=== PATIENT | male | born 1950 | race Caucasian/White ===

== ENCOUNTER → 2016-12-06 | Day surgery (SDC) | payer BC ==
[2016-11-22 14:39] VITALS: Ht 167.6 cm; Wt 67.3 kg
[~2016-12-06] VITALS: Ht 167.6 cm; Wt 67.3 kg
[~2016-12-06] MED LIST: 500ML BSS 0.3ML EPI 1:1000PF IRRIG ONE; ACETAMINOPHEN 325 MG TAB PO PRN; AMVISC PLUS 0.8ML SYRINGE INT OCU ONE; ATROPINE SULFATE 0.1 MG/ML 5ML SYR IV PRN; AcetaZOLAMIDE 250 MG TAB PO SCH; BETAXOLOL HCL 0.25% OP SUSP PER DROP CHARGE OPR SCH; BRIMONIDINE TART 0.2% OP SOLN PER DROP CHARGE ONE; BSS FLUSH ONE; CHOL1000 PO; ENDOCOAT 0.85ML SYRINGE INT OCU ONE; EpHEDrine SULFATE INJ 50 MG/ML AMP IV PRN; EpINEphrine INJ 1MG/ML AMP 1 MG/ML AMP ONE; LACTATED RINGER'S 1000ML 500 ML IV SCH; LIDOCAINE 4% OP SOLN DROP CHARGE OPR SCH; LIDOCAINE HCL 1% MPF 2 ML VIAL ONE; LPT/20 PO; MIDAZOLAM HCL 1 MG/ML 2ML VIAL ONE; MIX: 4ML BSS 1ML EPI 1:1000 PF INSTIL ONE; MOXIFLOXACIN OPH SOLN PER DROP CHARGE ONE; OCUCOAT 1 ML SOLN IO ONE; POVIDONE-IODINE OP SOLN 30 ML BTL ONE; PROPARACAINE 0.5% OP SOLN PER DROP CHARGE OPR SCH; TOBRAMYCIN/DEXAMETHASONE OPH OINT PER APPLN CHARGE ONE
[2016-12-06] MEDS: PHENYLEPHRINE HCL 2.5% OP SOLN PER DROP CHARGE OPR SCH ×2 (06:41→06:46)
[2016-12-06] MEDS: TROPICAMIDE 1% OP SOLN PER DROP CHARGE OPR SCH ×2 (06:42→06:47)
[2016-12-06] MEDS: CYCLOPENTOLATE HCL 1% OP SOLN PER DROP CHARGE OPR SCH ×2 (06:43→06:48)
[2016-12-06] MEDS: MOXIFLOXACIN OPH SOLN PER DROP CHARGE OPR SCH ×2 (06:44→06:54)
--- NOTE | 2016-12-06 06:52 | History & Physical Bridge - SC ---
H&P Re-Evaluation Bridge Note: I have examined the patient, reviewed the History & Physical and in the interval since the performance of the History & Physical I have noted the following changes of clinical significance: No changes noted
[2016-12-06] MEDS: LIDOCAINE 4% OP SOLN DROP CHARGE ONE ×2 (06:56→07:00)
--- NOTE | 2016-12-06 07:18 | Discharge Instructions-SurgCtr ---
Discharge Instructions Date of Service Dec 06, 2016. Visit Reason for Visit: Cataract Right Eye Discharge Discharge Diagnosis / Problem: lens implant right eye Discharge Goals Goal(s): Improve function Activity Recommendations Activity Limitations: resume your previous activity Lifting Limitations: no more than 10 pounds Exercise/Sports Limitations: gradually increase as tolerated May Resume Sexual Activity: when tolerated Shower/Bathe: tomorrow Driving or Machine Use: resume 1 day after discharge Anesthesia . Post Anesthesia Instructions: If you have had General Anesthesia or IV Sedation: * Do not drive today. * Resume driving when surgeon permits. * Do not make important decisions or sign legal documents today. * Call surgeon for: 1. Temperature elevations greater than 101 degrees F. 2. Uncontrollable pain. 3. Excessive bleeding. 4. Persistent nausea and vomiting. 5. Medication intolerance (nausea, vomiting or rash). * For nausea and vomiting use only clear liquids such as: tea, soda, bouillon until nausea subsides, then gradually increase diet as tolerated. * If you have any concerns or questions, call your surgeon's office. If physician is unavailable and it is an emergency, call 911 or go to the nearest emergency room. . Instructions / Follow-Up Instructions / Follow-Up ACTIVITY RECOMMENDATIONS: * Light activities. * Mild irritation and blurred vision are common for the first few days. * You may walk outside, read, watch television. * Redness around the white part of the eye is common. MEDICATIONS: Resume previous medications unless instructed otherwise by your surgeon. * Take white Diamox (Acetazolamide) tablet at 1 pm today. Start all eye drops at 1 pm today: * Eye drops (today and tomorrow): Prednisone - one drop in operative eye every 3 hours while awake Ofloxacin - one drop in operative eye every 3 hours while awake SPECIAL CARE INSTRUCTIONS: * Tape plastic shield over eye to sleep at night. Call your doctor at with any concerns or problems. FOLLOW UP VISIT: Follow-up with Dr Leroy at [facility] as scheduled. Diet Recommendations Home Diet: no limitations Procedures Procedures Performed: Right Cataract Phacoemulsification With Intraocular Lens Implant Pending Studies Studies pending at discharge: no Medical Emergencies . Who to Call and When: Medical Emergencies: If at any time you feel your situation is an emergency, please call 911 immediately. . Non-Emergent Contact Non-Emergency issues call your: Family Practice Md Call Non-Emergent contact if: your pain is not controlled [phone] . . "Provider Documentation" section prepared by Torrey Leroy. .
[2016-12-06 07:19] VITALS: TEMP 36.3
--- NOTE | 2016-12-06 07:20 | [facility] Operative Report ---
Operative Report Date of Service Dec 06, 2016. Operative Report 1. PREOPERATIVE DIAGNOSIS: Pre Senile nuclear cataract, right eye. 2. POSTOPERATIVE DIAGNOSIS: Pre Senile nuclear cataract, right eye. 3. PROCEDURE: Phacoemulsification of right cataract with posterior chamber lens implant, type Bausch [employer] Lomb, model MI60L, power +9.00 diopters. ANESTHESIA: Local standby. SURGEON: Dr. Leroy. COMPLICATIONS: None. OPERATING TIME: 10 minutes. 4. OPERATION AND FINDINGS: DESCRIPTION OF PROCEDURE: The right pupil was dilated. The anesthetic was administered using a topical technique. The right eye was prepped and draped. A speculum was placed. A clear corneal incision was formed. The chamber was filled with Amvisc Plus and Endocoat. Epinephrine solution was used. A paracentesis was placed. A capsulorrhexis was performed. The nucleus was hydrodissected. The lens was removed with phacoemulsification. Time was 4.51 seconds. The aspiration unit was used to remove the cortex. The capsule was filled with Amvisc Plus. The lens implant was folded and placed into the capsule. The incision was hydrated. The Amvisc was aspirated. The wound was secure. The chamber was deep. The pupil was round. Brimonidine, TobraDex ointment and Vigamox solution were placed. The speculum was removed. The patient was returned to the Recovery Room in stable condition. I attest to the content of the Intraoperative Record and any orders documented therein. Any exceptions are noted below. The scribe's documentation has been prepared in my presence, under my direction and personally reviewed by me in its entirety. I confirm that the note above accurately reflects all work, treatment, procedures, and medical decision making performed by me. I personally scribed for Torrey Leroy M.D. ([email or web address]) on 12/06/16 at 07:20. Electronically submitted by Verena White ([email or web address]).
[2016-12-06 07:36] VITALS: BP 136/76; PULSE 67; O2SAT 97
--- NOTE | 2016-12-06 07:48 | Anesthesia Progress Nt - [facility] ---
Anesthesia Post Op Note Date & Time Dec 06, 2016 at 07:48 Vital Signs Pain Intensity: 0 Vital Signs Past 12 Hours Date Time Temp Pulse Resp B/P (MAP) Pulse Ox O2 Delivery O2 Flow Rate FiO2 12/06/16 07:36 67 16 136/76 (96) 97 Room Air 12/06/16 07:19 36.3 57 16 126/82 (97) 98 Room Air 12/06/16 06:29 36.6 67 16 156/90 (112) 95 Room Air Notes Mental Status: alert / awake / arousable, participated in evaluation Pt Amnestic to Procedure: Yes Nausea / Vomiting: adequately controlled Pain: adequately controlled Airway Patency, RR, SpO2: stable & adequate BP & HR: stable & adequate Hydration State: stable & adequate Anesthetic Complications: no major complications apparent
== END | disposition home or self-care (01) ==
LOC: X.SURG 06:25
PROVIDERS: ATTEND Specialist
DX: H26.8 Other specified cataract (principal)

== ENCOUNTER → 2016-12-13 | Day surgery (SDC) | payer BC ==
[~2016-12-13] VITALS: Ht 167.6 cm; Wt 67.0 kg
[~2016-12-13] MED LIST changes: +AcetaZOLAMIDE 250 MG TAB ONE; +BETAXOLOL HCL 0.25% OP SUSP PER DROP CHARGE OPL SCH; -BETAXOLOL HCL 0.25% OP SUSP PER DROP CHARGE OPR SCH; +FENTANYL CITRATE INJ 50 MCG/1 ML 2 ML VIAL IV PRN; +FLUMAZENIL 0.1 MG/1 ML 10 ML VIAL IV PRN; +HYDROmorphone INJ 2 MG/ML SYR/VIAL IV PRN; +LABETALOL HCL IV 5 MG/ML 20ML IV PRN; +LIDOCAINE 4% OP SOLN DROP CHARGE ONE; +LIDOCAINE 4% OP SOLN DROP CHARGE OPL SCH; -LIDOCAINE 4% OP SOLN DROP CHARGE OPR SCH; +MEPERIDINE HCL 25 MG/ML CARP IV PRN; +NALOXONE HCL 0.4 MG/1 ML VIAL/CARP IV PRN; +ONDANSETRON INJ 2 MG/ML 2 ML VIAL IV PRN; +PHENYLEPHRINE 100MCG/ML 5ML SYR IV PRN; +PROPARACAINE 0.5% OP SOLN PER DROP CHARGE OPL SCH; -PROPARACAINE 0.5% OP SOLN PER DROP CHARGE OPR SCH
[2016-12-13 06:26] VITALS: Ht 167.6 cm; Wt 67.0 kg
[2016-12-13] MEDS: PHENYLEPHRINE HCL 2.5% OP SOLN PER DROP CHARGE OPL SCH ×2 (06:45→06:50)
[2016-12-13] MEDS: TROPICAMIDE 1% OP SOLN PER DROP CHARGE OPL SCH ×2 (06:46→06:51)
[2016-12-13] MEDS: CYCLOPENTOLATE HCL 1% OP SOLN PER DROP CHARGE OPL SCH ×2 (06:47→06:52)
[2016-12-13] MEDS: MOXIFLOXACIN OPH SOLN PER DROP CHARGE OPL SCH ×2 (06:48→06:58)
--- NOTE | 2016-12-13 08:00 | Discharge Instructions-SurgCtr ---
Discharge Instructions Date of Service Dec 13, 2016. Visit Reason for Visit: Cataract Left Eye Discharge Discharge Diagnosis / Problem: lens implant left eye Discharge Goals Goal(s): Improve function Activity Recommendations Activity Limitations: resume your previous activity Lifting Limitations: no more than 10 pounds Exercise/Sports Limitations: gradually increase as tolerated May Resume Sexual Activity: when tolerated Shower/Bathe: tomorrow Driving or Machine Use: resume 1 day after discharge Anesthesia . Post Anesthesia Instructions: If you have had General Anesthesia or IV Sedation: * Do not drive today. * Resume driving when surgeon permits. * Do not make important decisions or sign legal documents today. * Call surgeon for: 1. Temperature elevations greater than 101 degrees F. 2. Uncontrollable pain. 3. Excessive bleeding. 4. Persistent nausea and vomiting. 5. Medication intolerance (nausea, vomiting or rash). * For nausea and vomiting use only clear liquids such as: tea, soda, bouillon until nausea subsides, then gradually increase diet as tolerated. * If you have any concerns or questions, call your surgeon's office. If physician is unavailable and it is an emergency, call 911 or go to the nearest emergency room. . Instructions / Follow-Up Instructions / Follow-Up ACTIVITY RECOMMENDATIONS: * Light activities. * Mild irritation and blurred vision are common for the first few days. * You may walk outside, read, watch television. * Redness around the white part of the eye is common. MEDICATIONS: Resume previous medications unless instructed otherwise by your surgeon. * Take white Diamox (Acetazolamide) tablet at 1 pm today. Start all eye drops at 1 pm today: * Eye drops (today and tomorrow): Prednisone - one drop in operative eye every 3 hours while awake Ofloxacin - one drop in operative eye every 3 hours while awake SPECIAL CARE INSTRUCTIONS: * Tape plastic shield over eye to sleep at night. Call your doctor at with any concerns or problems. FOLLOW UP VISIT: Follow-up with Dr Leroy at [place] office as scheduled. Diet Recommendations Home Diet: no limitations Procedures Procedures Performed: cataract extraction with lens implant Pending Studies Studies pending at discharge: no Medical Emergencies . Who to Call and When: Medical Emergencies: If at any time you feel your situation is an emergency, please call 911 immediately. . Non-Emergent Contact Non-Emergency issues call your: [facility] [employer] Call Non-Emergent contact if: your pain is not controlled [phone] . . "Provider Documentation" section prepared by Torrey Leroy. .
--- NOTE | 2016-12-13 08:02 | [facility] Operative Report ---
Operative Report Date of Service Dec 13, 2016. Operative Report 1. PREOPERATIVE DIAGNOSIS: Pre Senile Posterior Subcapsular Cataract, left eye. 2. POSTOPERATIVE DIAGNOSIS: Pre Senile Posterior Subcapsular Cataract, left eye. 3. PROCEDURE: Phacoemulsification of left cataract with posterior chamber lens implant, type Bausch [employer] Lomb, model MI60L, power +13.0 diopters. ANESTHESIA: Local standby. SURGEON: Dr. Leroy. COMPLICATIONS: None. OPERATING TIME: 10 minutes. 4. OPERATION AND FINDINGS: DESCRIPTION OF PROCEDURE: The left pupil was dilated. The anesthetic was administered using a topical technique. The left eye was prepped and draped. A speculum was placed. A clear corneal incision was formed. The chamber was filled with Amvisc Plus and Endocoat. Epinephrine solution was used. A paracentesis was placed. A capsulorrhexis was performed. The nucleus was hydrodissected. The lens was removed with phacoemulsification. Time was 2.31 seconds. The aspiration unit was used to remove the cortex. The capsule was filled with Amvisc Plus. The lens implant was folded and placed into the capsule. The incision was hydrated. The Amvisc was aspirated. The wound was secure. The chamber was deep. The pupil was round. Brimonidine, TobraDex ointment and Vigamox solution were placed. The speculum was removed. The patient was returned to the Recovery Room in stable condition. I attest to the content of the Intraoperative Record and any orders documented therein. Any exceptions are noted below. The scribe's documentation has been prepared in my presence, under my direction and personally reviewed by me in its entirety. I confirm that the note above accurately reflects all work, treatment, procedures, and medical decision making performed by me. I personally scribed for Torrey Leroy M.D. (ANAY) on 12/13/16 at 08:02. Electronically submitted by Verena TELLEZ).
[2016-12-13 08:21] VITALS: TEMP 36.4
--- NOTE | 2016-12-13 08:21 | Anesthesia Progress Nt - [facility] ---
Anesthesia Post Op Note Date & Time Dec 13, 2016 at 08:21 Vital Signs Pain Intensity: 0 Vital Signs Past 12 Hours Date Time Temp Pulse Resp B/P (MAP) Pulse Ox O2 Delivery O2 Flow Rate FiO2 12/13/16 06:34 36.7 59 16 162/92 (115) 98 Room Air Notes Mental Status: alert / awake / arousable, participated in evaluation Pt Amnestic to Procedure: Yes Nausea / Vomiting: adequately controlled Pain: adequately controlled Airway Patency, RR, SpO2: stable & adequate BP & HR: stable & adequate Hydration State: stable & adequate Anesthetic Complications: no major complications apparent
[2016-12-13 08:33] VITALS: BP 128/79; PULSE 62; O2SAT 97
== END | disposition home or self-care (01) ==
LOC: X.SURG 06:18
PROVIDERS: ATTEND Specialist
DX: H26.8 Other specified cataract (principal)

== ENCOUNTER 2025-01-06 01:33 | Inpatient (IN) ==
--- NOTE | 2025-01-06 01:50 | Emergency Department Note ---
Impression & Plan Acute hypoxemic respiratory failure, Severe sepsis, Multifocal pneumonia, Immunocompromised patient ED Provider Note Name: YOUSUF BRITTON Age: 74 Sex: Male Arrives Via: Walk-In Informant: Patient, ED Provider: Yordy Fagan MD Chief Complaint: Illness Impression: As progression above Medical Decision Makin-year-old gentleman arrives for evaluation of illness. Patient has a history of multiple myeloma for which he received a round of chemotherapy this morning. Patient arrives febrile tachycardic hypotensive and quite ill-appearing diaphoretic. I was immediately called to the patient's room where quested 2 IVs be obtained and immediate fluid resuscitation initiated. Patient's examination highly concerning for severe sepsis secondary to pulmonary cause however tumor lysis syndrome amongst others clearly on differential. Blood cultures and lactic acid sent along with VBG and extensive other laboratory testing. Labs show a normal white blood cell count which is somewhat bumped from just yesterday though with his chemotherapy I would still consider him at risk of being immunosuppressed. He is a bit on the acidotic side with a relatively elevated lactic acid. Lactate dehydrogenase is only mildly elevated. Pro-Dawit is within normal range. At this point though I think proceeding with treating him as severe sepsis/early septic shock is the appropriate approach. Given his improvement in blood pressure and lactate less than 4 we will currently manage him as severe sepsis. He did receive 2 L normal saline for sepsis resuscitation with improvement in blood pressure. Patient furthermore received some IV Zosyn for antibiotic management. A MRSA swab was sent. I discussed the case at length with hospitalist and they feel given the findings on the chest x-ray of the multifocal pneumonia we should keep him in isolation until TB is ruled out. Multiple reevaluations and discussions with patient throughout. Only with his oxygenation requirements continued to increase throughout his stay. Hospitalist monitoring closely. He did not require high flow. Blood pressures remained relatively stable after initial fluid bolus with some mild tachycardia. While chest x-ray findings could be secondary to pulmonary edema, in the setting of hypotension fever amongst other findings, necessitates initial management geared towards infectious etiology and resuscitation, thus the importance of fluid resuscitation and aggressive management. Given worsening respiratory status and need for increasing NC O2, we did opt to obtain a second CXR and got critical care time involved. Sepsis resuscitation: Patient received 2 L normal saline bolus IV as his sepsis resuscitation of 30 mL/kg IV fluids. Sepsis reevaluation: A sepsis reevaluation exam was completed 3:30 AM on 01/06/2025. Patient has received 2 L normal saline bolus at this point. 115/67. Heart rate 96. Nasal cannula 5 L with an oxygen of 91%. Patient is not requiring further fluid bolus at this time. Triage/Nursing Notes reviewed by Me External Chart Review by me: Did review a discharge summary from 10/01/2024 discussing past medical history Differential:Viral syndrome, otitis, pharyngitis, pneumonia, influenza, meningitis, urinary tract infection, sepsis, bacteremia, as well as other pathologies. Vital Signs: reviewed and remarkable for hypoxia, tachycardia, hypotension Interventions: Normal saline bolus 2 L IV, Zosyn IV, Tylenol IV Labs:ED labs Reviewed by me and remarkable for multiple lab abnormalities see chart Imagin view chest x-ray as per my interpretation multifocal pneumonia versus pulmonary edema EKG:As read interpretation. Sepsis. Sinus tachycardia 120 bpm QTc of 483. There is no ectopy nor ischemia. When compared to EKG September 29 2024 heart rate has increased. Cardiac/Tele Monitoring: Cardiac Monitoring: An Order was placed for continuous cardiac monitoring. The monitor shows a rate of 120 with a sinus tach rhythm. Consults:Dr Filiberto RUTLEDGE Hospitalist consulted, evaluated patient and will admit to ICU. As patient has been having worsening respiratory issues now requiring High flow, he noted he will give ICU heads up. Plan: Disposition: Hospitalization Condition: Serious History of Present Illness: 74-year-old gentleman arrives for evaluation illness. Patient with multiple myeloma. He underwent chemotherapy earlier today. Throughout the evening worsening weakness fatigue fatigue and diaphoresis. noted fever of 103. He was becoming worsening ill and thus brought to the ER for further evaluation. Patient had been given Tylenol around midnight tonight. Patient states he feels very fatigued. He feels heart beating in his chest. He denies any specific shortness of breath. Denies any nausea, vomiting, headache, neck pain, chest pain back pain, urinary symptoms, leg swelling, rashes or other concerning signs or symptoms. He has no history of DVT or PE. Denies previous symptoms to this degree. Does note that he got pretty sick after last chemotherapy. Past Medical History: Multiple myeloma, dyslipidemia, hypertension Home Medications:See Below Allergies: No known drug allergy Vitals:Blood Pressure: 96/63, Pulse 120, RR 16, T 37.6C, O2 88% on RA Physical Exam: GENERAL: Patient is ill/diaphoretic appearing and in moderate distress. RESPIRATORY: Tachypnea, dyspnea, clear bilaterally CARDIOVASCULAR: Tachy.No murmur appreciated. GASTROINTESTINAL: Abdomen soft, non-tender, no peritonitis. EXTREMITIES: Normal motion all extremities, no cyanosis, no edema. NEUROLOGIC: Alert and oriented. No focal neurologic deficits appreciated SKIN: No rash, no jaundice, no diaphoresis. PSYCH: Appropriate GCS: 15 ED Course: Times/Reassessments: Improvement in vital signs after initial resuscitation. Hospitalized plan however some worsening respiratory distress and due to need for increasing respiratory support he will be admitted to the ICU Critical Care: I have personally spent 105 minutes of critical care time in the direct management of this patient. Acute hypoxic respiratory failure secondary to multifocal pneumonia vs other requiring resuscitation and intensive management. This was a life/limb threatening event. This 105 minutes is in excess of all separately billable procedures. Yordy Fagan MD Past Med/Surg History Problem List (Updated 01/06/25 @ 08:49 by Mady Pan MD) ARDS (adult respiratory distress syndrome) Immunocompromised patient (Acute) Multifocal pneumonia (Acute) Severe sepsis (Acute) Acute hypoxemic respiratory failure (Acute) Vitamin D deficiency Memory deficits Balance problem Fatigue HLD (hyperlipidemia) HTN (hypertension) Medical History (Updated 01/06/25 @ 08:49 by Mady Pan MD) No pertinent family history Surgical History (Updated 01/05/25 @ 09:22 by Trip Coles MD) H/O cervical spine surgery C5-6 fusion No pertinent past surgical history Family History (Updated 01/05/25 @ 09:23 by Trip Coles MD) Mother , age 90 with dementia Dementia Father , age 101 Heart disease Social History (Updated 01/05/25 @ 09:24 by Trip Coles MD) Smoking Status: Never smoker Do You Dip or Chew Tobacco: No; Hx Alcohol Use: Yes Alcohol type: beer Alcohol Intake Frequency: Monthly or Less Hx Substance Use: No Preferred Language: German 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 Required: No Beliefs That Will Affect Care: None Current Living Situation: Spouse current occupational status: retired 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 Feels Safe at Home: Yes Assistive Devices: BiPap Allergies Allergies Allergy/AdvReac Type Severity Reaction Status Date / Time No Known Allergies Allergy Verified 09/29/24 14:50 Home Meds Home Medications Medication Instructions Recorded Confirmed cholecalciferol (vitamin D3) 25 25 mcg PO QAM ##0 11/22/16 09/29/24 mcg (1,000 unit) tablet (Vitamin D3) acyclovir 200 mg capsule 400 mg PO BID 07/06/24 09/29/24 atorvastatin 10 mg tablet 20 mg PO HS 07/06/24 09/29/24 ferrous sulfate 325 mg (65 mg 325 mg PO QAM 07/06/24 09/29/24 iron) tablet (iron) metoprolol succinate 25 mg 25 mg PO DAILY 07/21/24 09/29/24 tablet,extended release 24 hr amlodipine 2.5 mg tablet 2.5 mg PO DAILY 09/26/24 09/29/24 levetiracetam 500 mg tablet 1,500 mg PO Q12H 09/26/24 09/29/24 tamsulosin 0.4 mg capsule mg PO 01/05/25 01/05/25 Results & Data (ED) Vital Signs Vital Signs - 24 hr 01/06/25 01:36 01/06/25 01:45 01/06/25 01:46 Temperature 37.6 C H Temperature Source Oral Pulse Rate 128 H Pulse Rate [Apical] 120 H Pulse Rhythm Regular Pulse Rhythm [Apical] Pulse Strength Normal Pulse Strength [Apical] Respiratory Rate 18 16 16 Respiratory Effort / Characteristics Non-Labored Spontaneous Non-Labored Spontaneous Respiratory Depth Normal Normal Respiratory Pattern Regular Blood Pressure 73/48 L Blood Pressure [Right Arm] 96/63 L Blood Pressure Mean 56 Blood Pressure Mean [Right Arm] 74 Pulse Oximetry 92 88 L 91 Oxygen Delivery Method Room Air Room Air Nasal Cannula Oxygen Flow Rate 4 Sepsis Recent Fever Within 48 Hours No Sepsis New/Unexplained Change in Mental Status No Sepsis Action Taken by Nursing Physician Notified 01/06/25 01:57 01/06/25 02:00 01/06/25 02:15 Temperature Temperature Source Pulse Rate 109 H 108 H 108 H Pulse Rate [Apical] Pulse Rhythm Pulse Rhythm [Apical] Pulse Strength Pulse Strength [Apical] Respiratory Rate 21 24 24 Respiratory Effort / Characteristics Respiratory Depth Respiratory Pattern Blood Pressure 87/60 L 92/62 L 99/61 L Blood Pressure [Right Arm] Blood Pressure Mean 68 67 72 Blood Pressure Mean [Right Arm] Pulse Oximetry 88 L 90 90 Oxygen Delivery Method Nasal Cannula Nasal Cannula Nasal Cannula Oxygen Flow Rate 4 4 4 Sepsis Recent Fever Within 48 Hours Sepsis New/Unexplained Change in Mental Status Sepsis Action Taken by Nursing 01/06/25 02:30 01/06/25 02:39 01/06/25 02:45 Temperature Temperature Source Pulse Rate 97 H 93 H Pulse Rate [Apical] 99 H Pulse Rhythm Pulse Rhythm [Apical] Regular Pulse Strength Pulse Strength [Apical] Normal Respiratory Rate 27 H 30 H Respiratory Effort / Characteristics Spontaneous Respiratory Depth Normal Respiratory Pattern Regular Blood Pressure 96/61 L Blood Pressure [Right Arm] 99/70 L Blood Pressure Mean 69 Blood Pressure Mean [Right Arm] 79 Pulse Oximetry 93 94 Oxygen Delivery Method Nasal Cannula Nasal Cannula Oxygen Flow Rate 4 4 Sepsis Recent Fever Within 48 Hours Sepsis New/Unexplained Change in Mental Status Sepsis Action Taken by Nursing 01/06/25 02:47 01/06/25 03:12 Temperature Temperature Source Pulse Rate 93 H Pulse Rate [Apical] 88 Pulse Rhythm Regular Pulse Rhythm [Apical] Pulse Strength Pulse Strength [Apical] Respiratory Rate 30 H 20 Respiratory Effort / Characteristics Respiratory Depth Respiratory Pattern Blood Pressure Blood Pressure [Right Arm] Blood Pressure Mean Blood Pressure Mean [Right Arm] Pulse Oximetry 94 91 Oxygen Delivery Method Nasal Cannula Nasal Cannula Oxygen Flow Rate 4 6 Sepsis Recent Fever Within 48 Hours Sepsis New/Unexplained Change in Mental Status Sepsis Action Taken by Nursing Laboratory Data 01/06/25 01:47 01/06/25 01:47 Lab Results 01/06/25 01/06/25 01/06/25 Range/Units 01:47 01:50 01:52 WBC 10.39 (4.8-10.8) K/ul RBC 3.97 L (4.70-6.10) M/uL Hgb 13.5 L (14.0-18.0) g/dl POC Hgb 13.3 L (14.0-18.0) g/dl Hct 39.5 L (42.0-52.0) % POC Hct 39 L (42-52) % MCV 99.5 (80.0-100.0) fL MCH 34.0 (25.0-34.0) pg MCHC 34.2 (32.0-36.0) g/dL RDW Std Deviation 46.1 (36.4-46.3) fL RDW Coeff of Ignacia 12.6 (11.5-14.5) % Plt Count 200 (130-400) K/uL MPV 10.7 (9.4-12.4) fL Immature Gran % (Auto) 4.9 % Neut % (Auto) 88.5 % Lymph % (Auto) 2.3 % Perry % (Auto) 3.8 % Eos % (Auto) 0.1 % Baso % (Auto) 0.4 % Neut # (Auto) 9.19 H (1.40-6.50) K/uL Lymph # (Auto) 0.24 L (1.20-3.40) K/uL Perry # (Auto) 0.40 (0.11-0.59) K/uL Eos # (Auto) 0.01 (0.00-0.50) K/uL Baso # (Auto) 0.04 (0.00-0.20) K/uL Immature Gran # (Auto) 0.51 H (0.01-0.20) K/uL VBG pH 7.41 (7.36-7.41) VBG pCO2 25 L (38-50) mmHg VBG pO2 45 mmHg VBG HCO3 16 mmol/L VBG O2 Saturation 77.4 % VBG Base Excess -7.1 mEq/L POC Sodium 140 (135-144) mmol/L Sodium 137 (136-145) mmol/L POC Potassium 3.6 (3.3-5.0) mmol/L Potassium 3.6 (3.5-5.1) mmol/L POC Chloride 110 (101-112) mmol/L Chloride 111 H (98-107) mmol/L Carbon Dioxide 16 L (21-32) mmol/L POC Total CO2 15 L (24-31) mmol/L Anion Gap 10 (3-11) POC Anion Gap 19.0 (16-25) mmol/L POC BUN 20 H (7-18) mg/dl BUN 23 (6-23) mg/dl Creatinine 1.00 (0.6-1.4) mg/dl POC Creatinine 1.0 (0.6-1.3) mg/dl Est Cr Clr Drug Dosing 60.3 ml/min eGFR 79.97 BUN/Creatinine Ratio 23.0 H (10-20) Glucose 197 H (70-99(Fasting)) mg/dl POC Glucose (other) 192 H (70-99) mg/dl Lactate 3.2 H* (0.4-2.0) mmol/L Uric Acid 4.9 (2.6-7.2) mg/dl Calcium 8.6 (8.6-10.3) mg/dl POC Ioniz Calcium Fozia 1.15 (1.12-1.32) mmol/l Magnesium 1.6 L (1.7-2.4) mg/dl Total Bilirubin 0.7 (0.2-1.0) mg/dl Direct Bilirubin 0.1 (0-0.2) mg/dl AST 17 (13-39) U/L ALT 10 (7-52) U/L Alkaline Phosphatase 43 (34-104) U/L Lactate Dehydrogenase 317 H (86-244) U/L Total Creatine Kinase 32 (30-223) U/L Troponin I High Sens 8.6 (0-20) pg/ml C-Reactive Protein < 0.50 (0-0.5) mg/dl Total Protein 6.0 (6.0-8.3) gm/dl Albumin 3.6 (3.4-5.0) gm/dl Procalcitonin 0.20 (0-0.5) ng/ml Urine Color Urine Appearance (Clear) Urine pH (4.5-7.5) Ur Specific Henderson (1.000-1.030) Urine Protein (Negative) Urine Glucose (UA) (Negative) Urine Ketones (Negative) Urine Blood (Negative) Urine Nitrite (Negative) Urine Bilirubin (Negative) Urine Urobilinogen (Negative) Ur Leukocyte Esterase (Negative) Urine WBC (Auto) (0-5) /hpf Urine RBC (Auto) (0-2) /hpf U Hyaline Cast (Auto) (0-2) /lpf U Epithel Cells (Auto) (0-2) /hpf Urine Bacteria (Auto) (None Seen) Calcium Oxalate Crystal (None Prsent) Urine Comment Nasal Screen MRSA (PCR) (Negative) SARS-CoV-2 (PCR) (Negative) Influenza Type A (PCR) (Neg) Influenza Type B (PCR) (Neg) RSV (RT-PCR) (Neg) 01/06/25 01/06/25 01/06/25 Range/Units 02:12 03:40 03:41 WBC (4.8-10.8) K/ul RBC (4.70-6.10) M/uL Hgb (14.0-18.0) g/dl POC Hgb (14.0-18.0) g/dl Hct (42.0-52.0) % POC Hct (42-52) % MCV (80.0-100.0) fL MCH (25.0-34.0) pg MCHC (32.0-36.0) g/dL RDW Std Deviation (36.4-46.3) fL RDW Coeff of Ignacia (11.5-14.5) % Plt Count (130-400) K/uL MPV (9.4-12.4) fL Immature Gran % (Auto) % Neut % (Auto) % Lymph % (Auto) % Perry % (Auto) % Eos % (Auto) % Baso % (Auto) % Neut # (Auto) (1.40-6.50) K/uL Lymph # (Auto) (1.20-3.40) K/uL Perry # (Auto) (0.11-0.59) K/uL Eos # (Auto) (0.00-0.50) K/uL Baso # (Auto) (0.00-0.20) K/uL Immature Gran # (Auto) (0.01-0.20) K/uL VBG pH (7.36-7.41) VBG pCO2 (38-50) mmHg VBG pO2 mmHg VBG HCO3 mmol/L VBG O2 Saturation % VBG Base Excess mEq/L POC Sodium (135-144) mmol/L Sodium (136-145) mmol/L POC Potassium (3.3-5.0) mmol/L Potassium (3.5-5.1) mmol/L POC Chloride (101-112) mmol/L Chloride (98-107) mmol/L Carbon Dioxide (21-32) mmol/L POC Total CO2 (24-31) mmol/L Anion Gap (3-11) POC Anion Gap (16-25) mmol/L POC BUN (7-18) mg/dl BUN (6-23) mg/dl Creatinine (0.6-1.4) mg/dl POC Creatinine (0.6-1.3) mg/dl Est Cr Clr Drug Dosing ml/min eGFR BUN/Creatinine Ratio (10-20) Glucose (70-99(Fasting)) mg/dl POC Glucose (other) (70-99) mg/dl Lactate 2.2 H* (0.4-2.0) mmol/L Uric Acid (2.6-7.2) mg/dl Calcium (8.6-10.3) mg/dl POC Ioniz Calcium Fozia (1.12-1.32) mmol/l Magnesium (1.7-2.4) mg/dl Total Bilirubin (0.2-1.0) mg/dl Direct Bilirubin (0-0.2) mg/dl AST (13-39) U/L ALT (7-52) U/L Alkaline Phosphatase (34-104) U/L Lactate Dehydrogenase (86-244) U/L Total Creatine Kinase (30-223) U/L Troponin I High Sens (0-20) pg/ml C-Reactive Protein (0-0.5) mg/dl Total Protein (6.0-8.3) gm/dl Albumin (3.4-5.0) gm/dl Procalcitonin (0-0.5) ng/ml Urine Color Yellow Urine Appearance Clear (Clear) Urine pH 5.0 (4.5-7.5) Ur Specific Henderson 1.024 (1.000-1.030) Urine Protein Trace H (Negative) Urine Glucose (UA) Negative (Negative) Urine Ketones Trace H (Negative) Urine Blood Negative (Negative) Urine Nitrite Negative (Negative) Urine Bilirubin Negative (Negative) Urine Urobilinogen Negative (Negative) Ur Leukocyte Esterase Negative (Negative) Urine WBC (Auto) 0-5 (0-5) /hpf Urine RBC (Auto) 3-5 H (0-2) /hpf U Hyaline Cast (Auto) 11-20 H (0-2) /lpf U Epithel Cells (Auto) 0-2 (0-2) /hpf Urine Bacteria (Auto) None Seen (None Seen) Calcium Oxalate Crystal Present A (None Prsent) Urine Comment Nasal Screen MRSA (PCR) Negative (Negative) SARS-CoV-2 (PCR) NEGATIVE (Negative) Influenza Type A (PCR) Negative (Neg) Influenza Type B (PCR) Negative (Neg) RSV (RT-PCR) Negative (Neg) Administered Medications Discontinued Medications Fentanyl Citrate (Fentanyl Citrate 2,500 Mcg/250 Ml Bag) Confirm Administered Dose 2,500 mcg IV .STK-MED ONE Stop: 01/06/25 08:29 Last Admin: 01/06/25 09:03 Dose: Not Given Documented By: GLENN Furosemide (Furosemide 40 Mg/4 Ml Vial) 80 mg IV ONE ONE Stop: 01/06/25 08:42 Last Admin: 01/06/25 09:03 Dose: Not Given Documented By: GLENN Furosemide (Furosemide 40 Mg/4 Ml Vial) Confirm Administered Dose 80 mg IV .STK- MED ONE Stop: 01/06/25 08:43 Last Admin: 01/06/25 08:58 Dose: Not Given Documented By: GLENN Sodium Chloride (Nss) 1,000 mls @ 999 mls/hr IV .Q1H1M JOEL Stop: 01/06/25 03:00 Last Infusion: 01/06/25 02:29 Dose: Infused Documented By: jc Admin: 01/06/25 01:58 Dose: 999 mls/hr Documented By: jc Sodium Chloride (Nss) 1,000 mls @ 999 mls/hr IV .Q1H1M ONE Stop: 01/06/25 03:24 Last Infusion: 01/06/25 03:57 Dose: Infused Documented By: Admin: 01/06/25 02:29 Dose: 999 mls/hr Documented By: jc Piperacillin Sod/Tazobactam Sod (Zosyn) 4.5 gm in 100 mls @ 200 mls/hr IV NOW ONE; Protocol Stop: 01/06/25 03:40 Last Infusion: 01/06/25 04:13 Dose: Infused Documented By: AmolT Admin: 01/06/25 03:43 Dose: 200 mls/hr Documented By: KAREEM Tuberculin PPD 0.1 ml/ Syringe 0.1 mls @ 0.033 mls/min ID ONE ONE Stop: 01/06/25 04:03 Last Admin: 01/06/25 04:29 Dose: 0.033 mls/min Documented By: CORY Magnesium Sulfate/Dextrose (Magnesium Sulfate / D5w) 1 gm in 100 mls @ 50 mls/hr IV Q2H JOEL Stop: 01/06/25 07:44 Last Admin: 01/06/25 06:45 Dose: 50 mls/hr Documented By: Infusion: 01/06/25 06:00 Dose: Infused Documented By: Admin: 01/06/25 04:00 Dose: 50 mls/hr Documented By: KAREEM Potassium Chloride/Sodium Chloride (Normal Saline W/20 Meq Kcl) 20 meq in 1,000 mls @ 80 mls/hr IV .[id number] [facility] Stop: 01/06/25 17:44 Last Admin: 01/06/25 05:36 Dose: 80 mls/hr Documented By: CORY Acyclovir Sodium 650 mg/ (Dextrose) 113 mls @ 100 mls/hr IV Q8H [facility] Stop: 01/08/25 03:59 Last Infusion: 01/06/25 05:37 Dose: Infused Documented By: Admin: 01/06/25 04:29 Dose: 100 mls/hr Documented By: CORY Vancomycin HCl 1,250 mg/ (Sodium Chloride) 525 mls @ 200 mls/hr IV NOW ONE Stop: 01/06/25 09:07 Last Admin: 01/06/25 06:48 Dose: 200 mls/hr Documented By: FAYE Magnesium Sulfate/Dextrose (Magnesium Sulfate / D5w) 1 gm in 100 mls @ 50 mls/hr IV Q2H [facility] Stop: 01/06/25 12:29 Last Admin: 01/06/25 08:35 Dose: 50 mls/hr Documented By: GLENN Doxycycline Hyclate 100 mg/ (Dextrose) 100 mls @ 50 mls/hr IV Q12H [facility] Stop: 01/11/25 07:29 Last Admin: 01/06/25 08:41 Dose: 50 mls/hr Documented By: GLENN Propofol (Diprivan) 1,000 mg in 100 mls @ 7.836 mls/hr IV .[id number] [facility]; Protocol Stop: 01/09/25 08:29 Last Titration: 01/06/25 10:04 Dose: Infused Documented By: Admin: 01/06/25 09:01 Dose: 25 mcg/kg/min, 9.8 mls/hr Documented By: GLENN Co-signed By: BIENVENIDO Fentanyl Citrate (Fentanyl Citrate) 2,500 mcg in 250 mls @ 2.5 mls/hr IV .Q96H [facility]; Protocol Stop: 01/20/25 08:29 Last Titration: 01/06/25 10:05 Dose: Infused Documented By: GLENN Co-signed By: NIK Admin: 01/06/25 09:01 Dose: 100 mcg/hr, 10 mls/hr Documented By: GLENN Co-signed By: BIENVENIDO Midazolam HCl (Versed) 125 mg in 250 mls @ 2 mls/hr IV .Q96H JOEL; Protocol Stop: 02/05/25 08:44 Last Titration: 01/06/25 10:07 Dose: Infused Documented By: GLENN Co-signed By: MARQUITA Admin: 01/06/25 09:02 Dose: 2 mg/hr, 4 mls/hr Documented By: GLENN Co-signed By: BIENVENIDO Dexamethasone 10 mg/ Syringe 2.5 mls @ 1 mls/min IV NOW STA Stop: 01/06/25 08:50 Last Admin: 01/06/25 08:58 Dose: 1 mls/min Documented By: GLENN Levetiracetam (Levetiracetam 500 Mg/5 Ml Vial) 1,500 mg IV Q12H [facility] Stop: 02/05/25 05:59 Last Admin: 01/06/25 06:46 Dose: 1,500 mg Documented By: FAYE Midazolam HCl (Midazolam Hcl 125mg/250ml D5w) Confirm Administered Dose 125 mg IV .STK-MED ONE Stop: 01/06/25 08:44 Last Admin: 01/06/25 09:03 Dose: Not Given Documented By: GLENN Midazolam HCl (Midazolam Hcl 125mg/250ml D5w) Confirm Administered Dose 125 mg IV .STK-MED ONE Stop: 01/06/25 08:46 Last Admin: 01/06/25 09:03 Dose: Not Given Documented By: GLENN Miscellaneous (Rapid Sequence Induction Bag) Confirm Administered Dose 1 each N/A .STK-MED ONE Stop: 01/06/25 08:22 Last Admin: 01/06/25 09:03 Dose: 1 each Documented By: GLENN Propofol (Propofol Iv Emulsion 10 Mg/Ml 100 Ml Vial) Confirm Administered Dose 1,000 mg IV .STK-MED ONE Stop: 01/06/25 08:28 Last Admin: 01/06/25 09:03 Dose: Not Given Documented By: GLENN Rocuronium [place] (Rocuronium [place] 10 Mg/Ml 5 Ml Vial) 40 mg IV ONCE STA Stop: 01/06/25 08:24 Last Admin: 01/06/25 09:04 Dose: Not Given Documented By: GLENN Vecuronium [place] (Vecuronium [place] 10 Mg Vial) Confirm Administered Dose 10 mg IV .K-MED ONE Stop: 01/06/25 08:43 Last Admin: 01/06/25 09:03 Dose: Not Given Documented By: GLENN Imaging Data Radiologist's Impression: Chest X-Ray 01/06/25 01:47 EXAM: XR chest 1V portable CLINICAL HISTORY: Sepsis TECHNIQUE: An X-ray image of the chest was obtained in AP portable projection. COMPARISON: 09/29/2024 FINDINGS: Pulmonary Parenchyma: The bilateral pulmonary parenchyma, predominant at the right middle zone and, to a lesser extent, the upper and lower zones, demonstrates opacifications with a dominant central distribution and decreased peripherally (butterfly pattern), suggesting pulmonary pneumonia or edema. There is no evidence of pleural effusion or pleural thickening. Heart and Mediastinum: The heart size and shape are normal. There is no mediastinal widening or masses. No hilar or mediastinal lymphadenopathy is identified. Bony Thorax: The bony thorax appears intact without fractures or deformities. Soft Tissues: The soft tissues overlying the chest wall are unremarkable. IMPRESSION: Findings suggest pneumonia or pulmonary edema; clinical correlation is advised (new findings). Electronically signed by Jakob Cho 01-06-2025 03:53 AM Discharge Plan Visit Data Chief Complaint: Fever Stated Complaint: INFUSION TODAY NOW COUGH AND FEVER ED Provider: Yordy Fagan Discharge Problem: Acute hypoxemic respiratory failure, Severe sepsis, Multifocal pneumonia, Immunocompromised patient Patient Disposition: Admitted As Inpatient Condition: Serious Discharge Instructions Interventions: ED Discharge Assessment Last Done: 01/06/25 05:10
[2025-01-06] MEDS: SODIUM CHLORIDE 0.9% 1,000 ML IV SCH (01:58)
[2025-01-06 02:10] LABS: Base Excess VBG -7.1 mEq/L; HCO3 VBG 16 mmol/L; Oxygen Saturation VBG 77.4 %; PCO2 VBG 25 mmHg (38-50); PO2 VBG 45 mmHg; pH VBG 7.41 (7.36-7.41)
[2025-01-06 02:14] LABS: Hematocrit (blood only) 39.5 % (42.0-52.0); Hemoglobin 13.5 g/dl (14.0-18.0); Immature Granulocytes # (auto) 0.51 K/uL (0.01-0.20); Immature Granulocytes % (auto) 4.9 %; Mean Corpuscular Hemoglobin 34.0 pg (25.0-34.0); Mean Corpuscular Volume 99.5 fL (80.0-100.0); Platelet Count 200 K/uL (130-400); RDW Standard Deviation 46.1 fL (36.4-46.3); Red Blood Count 3.97 M/uL (4.70-6.10); White Blood Count 10.39 K/ul (4.8-10.8)
[2025-01-06] MEDS: SODIUM CHLORIDE 0.9% 1,000 ML IV ONE (02:29)
[2025-01-06 02:32] LABS: Alanine Aminotransferase 10 U/L (7-52); Albumin Level 3.6 gm/dl (3.4-5.0); Alkaline Phosphatase 43 U/L (34-104); Anion Gap 10 (3-11); Bilirubin,Total 0.7 mg/dl (0.2-1.0); Blood Urea Nitrogen 23 mg/dl (6-23); Calcium 8.6 mg/dl (8.6-10.3); Carbon Dioxide 16 mmol/L (21-32); Chloride 111 mmol/L (98-107); Creatine Kinase 32 U/L (30-223); Creatinine Clr Calc Pharmacy 60.3 ml/min; Glucose 197 mg/dl (70-99(Fasting)); Magnesium 1.6 mg/dl (1.7-2.4); Potassium 3.6 mmol/L (3.5-5.1); Sodium 137 mmol/L (136-145); Total Protein 6.0 gm/dl (6.0-8.3)
[2025-01-06 02:39] LABS: Uric Acid 4.9 mg/dl (2.6-7.2)
[2025-01-06 03:03] LABS: Influenza A virus by PCR Negative (Neg); Influenza B virus by PCR Negative (Neg); SARS CoV2 RNA(COVID-19) Ceph NEGATIVE (Negative)
[2025-01-06] MEDS: PIPERACILLIN/TAZOBACTAM 4.5 GM/100 ML BAG IV ONE (03:43)
--- NOTE | 2025-01-06 03:54 | XRay Report ---
EXAM: XR chest 1V portable CLINICAL HISTORY: Sepsis TECHNIQUE: An X-ray image of the chest was obtained in AP portable projection. COMPARISON: 09/29/2024 FINDINGS: Pulmonary Parenchyma: The bilateral pulmonary parenchyma, predominant at the right middle zone and, to a lesser extent, the upper and lower zones, demonstrates opacifications with a dominant central distribution and decreased peripherally (butterfly pattern), suggesting pulmonary pneumonia or edema. There is no evidence of pleural effusion or pleural thickening. Heart and Mediastinum: The heart size and shape are normal. There is no mediastinal widening or masses. No hilar or mediastinal lymphadenopathy is identified. Bony Thorax: The bony thorax appears intact without fractures or deformities. Soft Tissues: The soft tissues overlying the chest wall are unremarkable. IMPRESSION: Findings suggest pneumonia or pulmonary edema; clinical correlation is advised (new findings). Electronically signed by Jakob Cho 01-06-2025 03:53 AM
--- NOTE | 2025-01-06 03:55 | History & Physical Report ---
Date of Service January 06, 2025 Assessment & Plan (1) Acute hypoxemic respiratory failure: (2) Multifocal pneumonia: (3) Severe sepsis: (4) Immunocompromised patient: Plan The patient is a 74-year-old male with a past medical history including multiple myeloma with most recent chemotherapy department admission, ambulatory dysfunction, memory deficit, vitamin D deficiency, fatigue, hyperlipidemia, hypertension, seizure disorder, and BPH. The patient was brought to the emergency department due to worsening shortness of breath, dyspnea exertion, generalized rapid decline in function throughout the day. The patient reported that he was feeling sick the previous evening, underwent chemotherapy on the morning of 01/05. His reports that he actually been sick for few days prior to that as well. Upon arrival to the emergency department, he was found to be hypotensive, with blood pressure 73/48. He was attended to by the ED physician, and received aggressive fluid rehydration, with improvement in blood pressure to the 99/70, and continued improvement from there with continued rehydration. Chest x-ray showed a very significant right upper and right middle lobe infection, and left upper and part of left lower lobe infection. He was initially on nasal cannula, and then changed to oxy mask, redness oxygen saturation in the ED low 90s. He was empirically placed on Zosyn 4.5 g IV by ED. he was then referred for evaluation for admission to the [facility] service. Acute respiratory failure with hypoxia/sepsis due to pneumonia/immunocompromised patient- Hold all oral medications for now Respiratory isolation TB protocol PPD placement and QuantiFERON testing Zosyn 4.5 g IV every 8 hours Acyclovir 600 mg IV every 8 hours Fluconazole 400 mg IV every 24 hours Duonebs every 2 hours as needed Acetaminophen 1 g IV every 8 hours as needed for mild pain or fever Zofran 4 mg IV every 6 hours as needed Pantoprazole 40 mg IV daily COVID, flu, RSV testing negative MRSA swab ordered and pending Chest x-ray with severe bilateral lobe and right middle lobe infections, with follow-up x-rays extending up the lower lobes bilaterally Cannot tolerate laying backwards to do CT chest at this time May be an element of fluid overload after requiring aggressive fluid rehydration due to hypotension. May require stoppage of IV fluids and IV diuresis Patient initially was on nasal cannula oxygen, was then changed to oxy mask, and when he required changing to nasal cannula high flow, while in the ED his admission orders were changed from PCU to ICU. 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 He has received IV and intrathecal chemotherapy. MRIs done December 30 showed no evidence of cancer or leptomeningeal enhancement at that time. Most recent chemotherapy and on the morning of 01/05 Symptoms has begun increased 2 days, however, he is not really this to oncology Immunoglobulin testing has been ordered by outpatient physician earlier today, which are showing a low normal IgG, and a abnormally low IgA and IgM Consulting Dr. Lora's office Dr. Rowe Seizure disorder- Changing Keppra 5 mg p.o. every 12 hours to IV every 12 hours Hypomagnesemia- Magnesium 1.6 on admission, give mag sulfate 2 g IV, recheck laboratories every morning History of Present Illness Chief Complaint: The patient was brought to the emergency department due to worsening shortness of breath, dyspnea exertion, generalized rapid decline in function throughout the day. The patient reported that he was feeling sick the previous evening, underwent chemotherapy on the morning of 01/05. His reports that he actually been sick for few days prior to that as well. Upon arrival to the emergency department, he was found to be hypotensive, with blood pressure 73/48. He was attended to by the ED physician, and received aggressive fluid rehydration, with improvement in blood pressure to the 99/70, and continued improvement from there with continued rehydration. Chest x-ray showed a very significant right upper and right middle lobe infection, and left upper and part of left lower lobe infection. He was initially on nasal cannula, and then changed to oxy mask, redness oxygen saturation in the ED low 90s. He was empirically placed on Zosyn 4.5 g IV by ED. Primary Care Provider: Eyal Baron MD The patient is a 74-year-old male with a past medical history including multiple myeloma with most recent chemotherapy department admission, ambulatory dysfunction, memory deficit, vitamin D deficiency, fatigue, hyperlipidemia, hypertension, seizure disorder, and BPH. The patient was brought to the emergency department due to worsening shortness of breath, dyspnea exertion, generalized rapid decline in function throughout the day. The patient reported that he was feeling sick the previous evening, underwent chemotherapy on the morning of 01/05. His reports that he actually been sick for few days prior to that as well. Upon arrival to the emergency department, he was found to be hypotensive, with blood pressure 73/48. He was attended to by the ED physician, and received aggressive fluid rehydration, with improvement in blood pressure to the 99/70, and continued improvement from there with continued rehydration. Chest x-ray showed a very significant right upper and right middle lobe infection, and left upper and part of left lower lobe infection. He was initially on nasal cannula, and then changed to oxy mask, redness oxygen saturation in the ED low 90s. He was empirically placed on Zosyn 4.5 g IV by ED. [facility] was [facility] Allergies Allergy/AdvReac Type Severity Reaction Status Date / Time No Known Allergies Allergy Verified 09/29/24 14:50 Home Medications Medication Instructions Recorded Confirmed Type cholecalciferol (vitamin D3) 25 25 mcg PO QAM ##0 11/22/16 09/29/24 History mcg (1,000 unit) tablet (Vitamin D3) acyclovir 200 mg capsule 400 mg PO BID 07/06/24 09/29/24 History atorvastatin 10 mg tablet 20 mg PO HS 07/06/24 09/29/24 History ferrous sulfate 325 mg (65 mg 325 mg PO QAM 07/06/24 09/29/24 History iron) tablet (iron) metoprolol succinate 25 mg 25 mg PO DAILY 07/21/24 09/29/24 History tablet,extended release 24 hr amlodipine 2.5 mg tablet 2.5 mg PO DAILY 09/26/24 09/29/24 History levetiracetam 500 mg tablet 1,500 mg PO Q12H 09/26/24 09/29/24 History tamsulosin 0.4 mg capsule mg PO 01/05/25 01/05/25 History Past Med/Surg History Problem List (Updated 01/06/25 @ 05:08 by Yordy Fagan MD) Immunocompromised patient (Acute) Multifocal pneumonia (Acute) Severe sepsis (Acute) Acute hypoxemic respiratory failure (Acute) Vitamin D deficiency Memory deficits Balance problem Fatigue HLD (hyperlipidemia) HTN (hypertension) Medical History (Updated 01/06/25 @ 05:08 by Yordy Fagan MD) No pertinent family history Surgical History (Updated 01/05/25 @ 09:22 by Trip Coles MD) H/O cervical spine surgery C5-6 fusion No pertinent past surgical history Family History (Updated 01/05/25 @ 09:23 by Trip Coles MD) Mother , age 90 with dementia Dementia Father , age 101 Heart disease Social History (Updated 01/05/25 @ 09:24 by Trip Coles MD) Smoking Status: Never smoker Hx Alcohol Use: Yes Alcohol Intake Frequency: Monthly or Less Preferred Language: Vietnamese Current Living Situation: Spouse current occupational status: retired 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 The review of systems is otherwise negative other than for that already noted above, and at least 10 systems have been reviewed. Physical Exam Physical Exam: The patient is awake, alert and oriented 3, normocephalic and atraumatic, lying in bed and in no acute distress. HEENT--PERRL, EOMI, mucous membranes and oropharynx dry. Neck--supple. No JVD. No bruits. Thyroid normal, trachea midline, no adenopathy. Heart--normal S1 and S2. No murmurs, rubs or gallops. Lungs--very coarse breath sounds bilaterally. No respiratory distress, no accessory muscle use. Abdomen--normal bowel sounds and soft. Nontender. Nondistended Extremities-- No edema. Dermatologic--normal skin turgor, normal color, no abnormal lymph nodes, no rash. Neurologic--cranial nerves II through XII grossly intact. Rheumatologic--normal range of motion. Psychiatric--normal affect. Results & Data Results & Data Vital Signs (Past 12 Hours) Vital Signs Temp Pulse Pulse Resp BP BP Pulse Ox 01/06/25 03:12 88 20 91 01/06/25 02:47 93 H 30 H 94 01/06/25 02:45 99 H 30 H 99/70 L 94 01/06/25 02:39 93 H 01/06/25 02:30 97 H 27 H 96/61 L 93 01/06/25 02:15 108 H 24 99/61 L 90 01/06/25 02:00 108 H 24 92/62 L 90 01/06/25 01:57 109 H 21 87/60 L 88 L 01/06/25 01:46 16 91 01/06/25 01:45 120 H 16 96/63 L 88 L 01/06/25 01:36 37.6 C H 128 H 18 73/48 L 92 O2 Del Method O2 Flow Rate 01/06/25 03:12 Nasal Cannula 6 01/06/25 02:47 Nasal Cannula 4 01/06/25 02:45 Nasal Cannula 4 01/06/25 02:39 01/06/25 02:30 Nasal Cannula 4 01/06/25 02:15 Nasal Cannula 4 01/06/25 02:00 Nasal Cannula 4 01/06/25 01:57 Nasal Cannula 4 01/06/25 01:46 Nasal Cannula 4 01/06/25 01:45 Room Air 01/06/25 01:36 Room Air Laboratory Results Laboratory Results WBC 10.39 K/ul (4.8-10.8) 01/06/25 01:47 RBC 3.97 M/uL (4.70-6.10) L 01/06/25 01:47 Hgb 13.5 g/dl (14.0-18.0) L 01/06/25 01:47 POC Hgb 13.3 g/dl (14.0-18.0) L 01/06/25 01:52 Hct 39.5 % (42.0-52.0) L 01/06/25 01:47 POC Hct 39 % (42-52) L 01/06/25 01:52 MCV 99.5 fL (80.0-100.0) 01/06/25 01:47 MCH 34.0 pg (25.0-34.0) 01/06/25 01:47 MCHC 34.2 g/dL (32.0-36.0) 01/06/25 01:47 RDW Std Deviation 46.1 fL (36.4-46.3) 01/06/25 01:47 RDW Coeff of Ignacia 12.6 % (11.5-14.5) 01/06/25 01:47 Plt Count 200 K/uL (130-400) 01/06/25 01:47 MPV 10.7 fL (9.4-12.4) 01/06/25 01:47 Immature Gran % (Auto) 4.9 % 01/06/25 01:47 Neut % (Auto) 88.5 % 01/06/25 01:47 Lymph % (Auto) 2.3 % 01/06/25 01:47 Logan % (Auto) 3.8 % 01/06/25 01:47 Eos % (Auto) 0.1 % 01/06/25 01:47 Baso % (Auto) 0.4 % 01/06/25 01:47 Neut # (Auto) 9.19 K/uL (1.40-6.50) H 01/06/25 01:47 Lymph # (Auto) 0.24 K/uL (1.20-3.40) L 01/06/25 01:47 Logan # (Auto) 0.40 K/uL (0.11-0.59) 01/06/25 01:47 Eos # (Auto) 0.01 K/uL (0.00-0.50) 01/06/25 01:47 Baso # (Auto) 0.04 K/uL (0.00-0.20) 01/06/25 01:47 Immature Gran # (Auto) 0.51 K/uL (0.01-0.20) H 01/06/25 01:47 VBG pH 7.41 (7.36-7.41) 01/06/25 01:50 VBG pCO2 25 mmHg (38-50) L 01/06/25 01:50 VBG pO2 45 mmHg 01/06/25 01:50 VBG HCO3 16 mmol/L 01/06/25 01:50 VBG O2 Saturation 77.4 % 01/06/25 01:50 VBG Base Excess -7.1 mEq/L 01/06/25 01:50 POC Sodium 140 mmol/L (135-144) 01/06/25 01:52 Sodium 137 mmol/L (136-145) 01/06/25 01:47 POC Potassium 3.6 mmol/L (3.3-5.0) 01/06/25 01:52 Potassium 3.6 mmol/L (3.5-5.1) 01/06/25 01:47 POC Chloride 110 mmol/L (101-112) 01/06/25 01:52 Chloride 111 mmol/L (98-107) H 01/06/25 01:47 Carbon Dioxide 16 mmol/L (21-32) L 01/06/25 01:47 POC Total CO2 15 mmol/L (24-31) L 01/06/25 01:52 Anion Gap 10 (3-11) 01/06/25 01:47 POC Anion Gap 19.0 mmol/L (16-25) 01/06/25 01:52 POC BUN 20 mg/dl (7-18) H 01/06/25 01:52 BUN 23 mg/dl (6-23) 01/06/25 01:47 Creatinine 1.00 mg/dl (0.6-1.4) 01/06/25 01:47 POC Creatinine 1.0 mg/dl (0.6-1.3) 01/06/25 01:52 Est Cr Clr Drug Dosing 60.3 ml/min 01/06/25 01:47 eGFR 79.97 01/06/25 01:47 BUN/Creatinine Ratio 23.0 (10-20) H 01/06/25 01:47 Glucose 197 mg/dl (70-99(Fasting)) H 01/06/25 01:47 POC Glucose (other) 192 mg/dl (70-99) H 01/06/25 01:52 Lactate 2.2 mmol/L (0.4-2.0) H* 01/06/25 03:41 Uric Acid 4.9 mg/dl (2.6-7.2) 01/06/25 01:47 Calcium 8.6 mg/dl (8.6-10.3) 01/06/25 01:47 POC Ioniz Calcium Fozia 1.15 mmol/l (1.12-1.32) 01/06/25 01:52 Magnesium 1.6 mg/dl (1.7-2.4) L 01/06/25 01:47 Total Bilirubin 0.7 mg/dl (0.2-1.0) 01/06/25 01:47 Direct Bilirubin 0.1 mg/dl (0-0.2) 01/06/25 01:47 AST 17 U/L (13-39) 01/06/25 01:47 ALT 10 U/L (7-52) 01/06/25 01:47 Alkaline Phosphatase 43 U/L (34-104) 01/06/25 01:47 Lactate Dehydrogenase 317 U/L (86-244) H 01/06/25 01:47 Total Creatine Kinase 32 U/L (30-223) 01/06/25 01:47 Troponin I High Sens 8.6 pg/ml (0-20) 01/06/25 01:47 Total Protein 6.0 gm/dl (6.0-8.3) 01/06/25 01:47 Albumin 3.6 gm/dl (3.4-5.0) 01/06/25 01:47 Procalcitonin 0.20 ng/ml (0-0.5) 01/06/25 01:47 Urine Color Yellow 01/06/25 03:40 Urine Appearance Clear (Clear) 01/06/25 03:40 Urine pH 5.0 (4.5-7.5) 01/06/25 03:40 Ur Specific Lindsey 1.024 (1.000-1.030) 01/06/25 03:40 Urine Protein Trace (Negative) H 01/06/25 03:40 Urine Glucose (UA) Negative (Negative) 01/06/25 03:40 Urine Ketones Trace (Negative) H 01/06/25 03:40 Urine Blood Negative (Negative) 01/06/25 03:40 Urine Nitrite Negative (Negative) 01/06/25 03:40 Urine Bilirubin Negative (Negative) 01/06/25 03:40 Urine Urobilinogen Negative (Negative) 01/06/25 03:40 Ur Leukocyte Esterase Negative (Negative) 01/06/25 03:40 Urine WBC (Auto) 0-5 /hpf (0-5) 01/06/25 03:40 Urine RBC (Auto) 3-5 /hpf (0-2) H 01/06/25 03:40 U Hyaline Cast (Auto) 11-20 /lpf (0-2) H 01/06/25 03:40 U Epithel Cells (Auto) 0-2 /hpf (0-2) 01/06/25 03:40 Urine Bacteria (Auto) None Seen (None Seen) 01/06/25 03:40 Calcium Oxalate Crystal Present (None Prsent) A 01/06/25 03:40 Urine Comment 01/06/25 03:40 Nasal Screen MRSA (PCR) Negative (Negative) 01/06/25 03:40 SARS-CoV-2 (PCR) NEGATIVE (Negative) 01/06/25 02:12 Influenza Type A (PCR) Negative (Neg) 01/06/25 02:12 Influenza Type B (PCR) Negative (Neg) 01/06/25 02:12 RSV (RT-PCR) Negative (Neg) 01/06/25 02:12 Impressions Chest X-Ray 01/06/25 05:13 EXAM: XR chest 1V portable CLINICAL HISTORY: Worsening respiratory status TECHNIQUE: An X-ray image of the chest was obtained in AP portable projection. COMPARISON: 01/06/2025 01:27:02 FABRIC AND ACCESSORIES ESTIMATOR FINDINGS: Pulmonary Parenchyma: There are bilateral pulmonary parenchymal opacities, predominant in the right middle zone, with consolidative opacities and bilateral central hilar opacities. There is slight progression. There are increased bronchovascular markings with reticular shadows. There is no evidence of pleural effusion or pleural thickening. Heart and Mediastinum: The size and shape of the heart are normal. There is no mediastinal widening or mass. Prominent hilar shadows. Bony Thorax: The bony thorax appears intact, without fractures or deformities. Cervical fixation. Soft Tissues: The soft tissues overlying the chest wall are unremarkable. ECG wires are present. IMPRESSION: 1. Overall imaging appearances are likely due to pulmonary edema; however, clinical and laboratory correlation is advised to rule out superimposed infection. 2. Slight interval worsening. Electronically signed by Jakob Cho 01-06-2025 06:33 AM Code Status & VTE Plan Code Status Full code VTE Prophylaxis Plan VTE Prophylaxis will be ordered: Yes PG Care Time/CCT Total # of Minutes Spent Total Time Spent with Patient: Total time spent is greater than 50% in coordination of care (as documented) at patient's floor/unit and/or counseling patient: 65 minutes Coding Level of Care Code 82532 INT INP/OBS CARE 3/75MIN Diagnoses Acute hypoxemic respiratory failure J96.01 Multifocal pneumonia J18.8 Severe sepsis A41.9; R65.20 Immunocompromised patient D84.9
[2025-01-06] MEDS: MAGNESIUM SULFATE / D5W 1 GM/100 ML BAG IV SCH ×2 (04:00→08:35)
[2025-01-06] MEDS: [UNRECOGNIZED DRUG - MIXTURE] ID ONE (04:29)
[2025-01-06] MEDS: ACYCLOVIR SOD 650 MG in DEXTROSE 5% 100 ML IV SCH (04:29)
[2025-01-06 04:43] LABS: Appearance Urine Clear (Clear); Bacteria Urine Automated None Seen (None Seen); Epithelial Cell Urine Auto 0-2 /hpf (0-2); Glucose Urine UA Negative (Negative); WBC Urine Automated 0-5 /hpf (0-5)
[2025-01-06] MEDS ORDERED: FLUCONAZOLE 200 MG/100 ML BAG IV SCH (05:00)
[2025-01-06] MEDS ORDERED: ONDANSETRON INJ 2 MG/ML 2 ML VIAL IV PRN (05:10)
[2025-01-06] MEDS ORDERED: ACETAMINOPHEN 325 MG TAB PO PRN (05:10)
[2025-01-06] MEDS ORDERED: ACETAMINOPHEN 1,000 MG/100 ML VIAL IV PRN (05:33)
[2025-01-06] MEDS: NSS + 20MEQ KCL 20 MEQ/1,000 ML BAG IV SCH (05:36)
[2025-01-06] MEDS ORDERED: VANCOMYCIN CONSULT ACTIVE PRN (06:08)
[2025-01-06] MEDS ORDERED: PIPERACILLIN/TAZOBACTAM 4.5 GM/100 ML BAG IV SCH ×3 (06:15→10:00)
--- NOTE | 2025-01-06 06:24 | Critical Care Consultation ---
Date of Consultation January 06, 2025 Assessment & Plan (1) ARDS (adult respiratory distress syndrome): (2) Multifocal pneumonia: (3) Acute hypoxemic respiratory failure: Plan Mr. Rubens Garibay is a pleasant 74YOM with an extensive past medical history as listed below who presented to [facility] ED in the early hours of 01/06/2025 due to sudden onset fever/chills and shortness of breath after a round of KCd on 01/05/2025. 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 pneumonitis v. other -Intubated on VC-AC 100% PEEP 15 TV 450 RR 12 -Patient noted to have extensive pulm edema in ETT post intubation -POCUS does not appear to have cardiomyopathy or regional wall motion abnormality. Pursue formal TTE. One time Lasix held as edema appears noncardiogenic. -ABX as noted in ID -10mg dex given. Heme/onc rec. -Maintian SpO2 > 92% GI: Dysphagia -NPO -OG tube to be placed -Hold TF at this time : Creat- 1.00 BUN 23 Ceballos for I/O Endo: Stress hyperglycemia -ICU hyperglycemia protocol -Maintain BG 140-180 -BG 190's Heme/Onc Multiple myeloma -Follows with Oncology at [facility] -Last chemo 01/05/2025 -Most recent MRI brain 12/30 shows resolution and good treatment response. ID: Possible pneumonia CAP v. opportunistic infection in setting of immunocompromised state -WBC 3.55->10.39 this am -Febrile on arrival to ED -Chest x-ray shows worsening bilateral pulmonary infiltrates. -Broaden ABX to Zosyn, Vanc, and doxy -Fungitell pending -Obtain bal once intubated -Procal 0.20 -Flu, RSV, COVID negative - Prophylaxis -Start GI prophylaxis with pepcid -SCD for mechanical DVT prophylaxis -Lovenix for chemical DVT prophylaxis Disposition: ICU for acute hypoxic respiratory failure with need for mechanical ventilation. Plan to transfer to [facility] MICU for cont eval and management. Family updated to POC by ICU team on 01/06/25. I have personally spent 45 minutes of critical care time in the direct ma nagement of this patient. This is a life/limb threatening event. This includes time spent evaluating patient, direct bedside care, chart review, placing orders, interpretation of diagnostic studies, discussion with consultants, patient, and family members, as well as other required patient management activities. This time is exclusive of all separately billable procedures, and teaching time and separate from and in addition to any other critical care service time. Thank you for allowing us to participate in the care of this patient. Supervising Physician Co-Signing Physician Notes I have personally evaluated and examined this patient. I agree with plan of Flakito FINNEY in the subsequent treatment of the patient Initially saw the patient prior to Flakito FINNEY, patient in acute hypoxic respiratory failure requiring immediate intervention. Please see procedure note. I discussed with the patient's prognosis, patient's son were also able to see the patient prior to intubation. Patient had significant flash pulmonary edema. He was significantly hypoxic requiring a recruitment maneuver which significantly improved his oxygen saturation. Patient entered acute respiratory distress syndrome likely secondary to recent chemotherapy infusion. Bedside ultrasound was completed by me demonstrated diffuse B-lines through all lung garrido, cardiac function appears to be preserved, no evidence of pleural effusion at this time nor atelectatic changes. Instituted neuromuscular blockade for transport and hypoxia. My critical care time is prior to and Flakito FINNEY critical care time is subsequent to my management. I have personally spent 40 minutes of critical care time in the direct management of this patient. This is a life/limb threatening event. This includes time spent evaluating patient, direct bedside care, chart review, placing orders, interpretation of diagnostic studies, discussion with consultants, patient, and/or family members regarding treatment decisions, as well as other required patient management activities. This time is exclusive of all separately billable procedures, and teaching time and separate from and in addition to any other critical care service time. History of Present Illness Reason for Consultation: Respiratory failure Requesting Physician: Filiberto Attending Physician: Mario De Los Santos MD History of Present Illness Mr. Rubens Garibay is a pleasant 74YOM with an extensive past medical history as listed below who presented to [facility] ED in the early hours of 01/06/2025 due to sudden onset fever/chills and shortness of breath after a round of KCd on 01/05/2025. Afebrile on arrival to ED. Received 2L IVF bolus per sepsis protocol as well as Zosyn for empiric coverage. His respiratory status did worsen throughout ED course, eventually requiring HFNC 60/1.0. Remainder of work-up reveals lactic acidosis, WBC 10.4 from 3.6 just 12 hours prior with neutrophil predominance and lymphopenia. Compensated metabolic acidosis with respiratory alkalosis. Cr bump from 0.87 to 1.0. Imaging revealed dense multifocal opacities with dominant central distribution. Patient was upgraded to ICU admission. Patient seen in ED C10. He is AAOx4. Mild respiratory distress. He is able to converse in short sentences. SpO2 92% on 60/1.0. RR 30s. Afebrile, tachycardic, normotensive. Patient provides additional history. Sudden onset fever/chills and fatigue late last evening. awoke around 2300 to patient restless and febrile to 103F. She brought him to the hospital herself. On chart review: PMH: AF on Eliquis Multiple myeloma, advanced, with leptomeningeal disease Status epilepticus 2/2 LMD on Keppra HTN/HLD GERD MDRO Pulmonary hypertension, mild Receives KCd via Ommaya port as well as Velcade and Revlimid. MRI from 12/30 shows resolution of leptomeningeal disease. Allergies Allergy/AdvReac Type Severity Reaction Status Date / Time No Known Allergies Allergy Verified 09/29/24 14:50 Home Medications Medication Instructions Recorded Confirmed Type cholecalciferol (vitamin D3) 25 25 mcg PO QAM ##0 11/22/16 09/29/24 History mcg (1,000 unit) tablet (Vitamin D3) acyclovir 200 mg capsule 400 mg PO BID 07/06/24 09/29/24 History atorvastatin 10 mg tablet 20 mg PO HS 07/06/24 09/29/24 History ferrous sulfate 325 mg (65 mg 325 mg PO QAM 07/06/24 09/29/24 History iron) tablet (iron) metoprolol succinate 25 mg 25 mg PO DAILY 07/21/24 09/29/24 History tablet,extended release 24 hr amlodipine 2.5 mg tablet 2.5 mg PO DAILY 09/26/24 09/29/24 History levetiracetam 500 mg tablet 1,500 mg PO Q12H 09/26/24 09/29/24 History tamsulosin 0.4 mg capsule mg PO 01/05/25 01/05/25 History Patient History Medical History (Updated 01/06/25 @ 08:49 by Mady Pan MD) No pertinent family history Surgical History (Updated 01/05/25 @ 09:22 by Trip Coles MD) H/O cervical spine surgery C5-6 fusion No pertinent past surgical history Family History (Updated 01/05/25 @ 09:23 by Trip Coles MD) Mother , age 90 with dementia Dementia Father , age 101 Heart disease Social History (Updated 01/05/25 @ 09:24 by Trip Coles MD) Smoking Status: Never smoker Do You Dip or Chew Tobacco: No; Hx Alcohol Use: Yes Alcohol type: beer Alcohol Intake Frequency: Monthly or Less Hx Substance Use: No Preferred Language: Macedonian Heel Burnisher Required: No Beliefs That Will Affect Care: None Current Living Situation: Spouse current occupational status: retired 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 WEIGHT/BMI reviewed. GEN: Critically ill appearing, well-developed, NAD. PSYCH: Good Judgment. AOx3. Normal memory, mood, and affect. HEENT -Head: NC/AT; -Eyes: PERRL, EOMI. No discharge or redn ess; -Ears: External ears are normal. -Nose: Normal nares. -Mouth and throat: MMM. Normal gums, muc liz, palate,. Good dentition. NECK: Supple, with no masses. CV: RRR, no m/r/g. LUNGS: Crackles in bilateral upper and lower lobes. Chest rise symmetrical. Breathing labored on Bipap. ABD: Soft, NT/ND, NBS, no masses or organomegaly. : N/A SKIN: Warm, well perfused. No skin rashes or abnormal lesions. MSK: No deformities, Normal gait. EXT: No clubbing, cyanosis, or edema. NEURO: Normal muscle strength and tone. No focal deficits. Results & Data Results & Data Vital Signs (Past 12 Hours) Vital Signs Temp Pulse Pulse Resp BP BP Pulse Ox 01/06/25 05:30 109 H 38 H 112/81 95 10/07/25 05:17 105 H 32 H 110/67 95 01/06/25 05:17 01/06/25 04:51 104 H 30 H 125/72 86 L 01/06/25 04:07 90 01/06/25 03:55 37.0 C 102 H 23 149/66 H 86 L 01/06/25 03:12 88 20 91 01/06/25 02:47 93 H 30 H 94 01/06/25 02:45 99 H 30 H 99/70 L 94 01/06/25 02:39 93 H 01/06/25 02:30 97 H 27 H 96/61 L 93 01/06/25 02:15 108 H 24 99/61 L 90 01/06/25 02:00 108 H 24 92/62 L 90 01/06/25 01:57 109 H 21 87/60 L 88 L 01/06/25 01:46 16 91 01/06/25 01:45 120 H 16 96/63 L 88 L 01/06/25 01:36 37.6 C H 128 H 18 73/48 L 92 Pulse Ox O2 Del Method O2 Del Method O2 Flow Rate O2 Flow Rate FiO2 01/06/25 05:30 High Flow Nasal Cannula 50 100 01/06/25 05:17 High Flow Nasal Cannula 50 100 01/06/25 05:17 95 High Flow Nasal Cannula 50 01/06/25 04:51 Oxymask 12 01/06/25 04:07 Oxymask 10 01/06/25 03:55 Oxymask 8 01/06/25 03:12 Nasal Cannula 6 01/06/25 02:47 Nasal Cannula 4 01/06/25 02:45 Nasal Cannula 4 01/06/25 02:39 01/06/25 02:30 Nasal Cannula 4 01/06/25 02:15 Nasal Cannula 4 01/06/25 02:00 Nasal Cannula 4 01/06/25 01:57 Nasal Cannula 4 01/06/25 01:46 Nasal Cannula 4 01/06/25 01:45 Room Air 01/06/25 01:36 Room Air Critical Care Results & Data Vital Signs (Past 12 Hours) Vital Signs Temp Pulse Pulse Resp BP BP Pulse Ox 01/06/25 08:24 01/06/25 06:50 108 H 30 H 94 01/06/25 06:33 36.8 C 102 H 26 H 144/80 H 92 01/06/25 06:31 101 H 30 H 93 01/06/25 05:30 109 H 38 H 112/81 95 01/06/25 05:17 105 H 32 H 110/67 95 01/06/25 05:17 01/06/25 04:51 104 H 30 H 125/72 86 L 01/06/25 04:07 90 01/06/25 03:55 37.0 C 102 H 23 149/66 H 86 L 01/06/25 03:12 88 20 91 01/06/25 02:47 93 H 30 H 94 01/06/25 02:45 99 H 30 H 99/70 L 94 01/06/25 02:39 93 H 01/06/25 02:30 97 H 27 H 96/61 L 93 01/06/25 02:15 108 H 24 99/61 L 90 01/06/25 02:00 108 H 24 92/62 L 90 01/06/25 01:57 109 H 21 87/60 L 88 L 01/06/25 01:46 16 91 01/06/25 01:45 120 H 16 96/63 L 88 L 01/06/25 01:36 37.6 C H 128 H 18 73/48 L 92 Pulse Ox O2 Del Method O2 Del Method O2 Flow Rate O2 Flow Rate FiO2 01/06/25 08:24 BiPAP 1.0 01/06/25 06:50 100 01/06/25 06:33 High Flow Nasal Cannula 60 100 01/06/25 06:31 High Flow Nasal Cannula 50 100 01/06/25 05:30 High Flow Nasal Cannula 50 100 01/06/25 05:17 High Flow Nasal Cannula 50 100 01/06/25 05:17 95 High Flow Nasal Cannula 50 01/06/25 04:51 Oxymask 12 01/06/25 04:07 Oxymask 10 01/06/25 03:55 Oxymask 8 01/06/25 03:12 Nasal Cannula 6 01/06/25 02:47 Nasal Cannula 4 01/06/25 02:45 Nasal Cannula 4 01/06/25 02:39 01/06/25 02:30 Nasal Cannula 4 01/06/25 02:15 Nasal Cannula 4 01/06/25 02:00 Nasal Cannula 4 01/06/25 01:57 Nasal Cannula 4 01/06/25 01:46 Nasal Cannula 4 01/06/25 01:45 Room Air 01/06/25 01:36 Room Air Lab & Micro Results (Past 24 Hours) No Data to Display No Data to Display No Data to Display Diagnostic Findings (Past 24 Hours) Chest X-Ray 01/06/25 01:47 EXAM: XR chest 1V portable CLINICAL HISTORY: Sepsis TECHNIQUE: An X-ray image of the chest was obtained in AP portable projection. COMPARISON: 09/29/2024 FINDINGS: Pulmonary Parenchyma: The bilateral pulmonary parenchyma, predominant at the right middle zone and, to a lesser extent, the upper and lower zones, demonstrates opacifications with a dominant central distribution and decreased peripherally (butterfly pattern), suggesting pulmonary pneumonia or edema. There is no evidence of pleural effusion or pleural thickening. Heart and Mediastinum: The heart size and shape are normal. There is no mediastinal widening or masses. No hilar or mediastinal lymphadenopathy is identified. Bony Thorax: The bony thorax appears intact without fractures or deformities. Soft Tissues: The soft tissues overlying the chest wall are unremarkable. IMPRESSION: Findings suggest pneumonia or pulmonary edema; clinical correlation is advised (new findings). Electronically signed by Jakob Cho 01-06-2025 03:53 AM Chest X-Ray 01/06/25 05:13 EXAM: XR chest 1V portable CLINICAL HISTORY: Worsening respiratory status TECHNIQUE: An X-ray image of the chest was obtained in AP portable projection. COMPARISON: 01/06/2025 01:27:02 [employer] JOINTER FINDINGS: Pulmonary Parenchyma: There are bilateral pulmonary parenchymal opacities, predominant in the right middle zone, with consolidative opacities and bilateral central hilar opacities. There is slight progression. There are increased bronchovascular markings with reticular shadows. There is no evidence of pleural effusion or pleural thickening. Heart and Mediastinum: The size and shape of the heart are normal. There is no mediastinal widening or mass. Prominent hilar shadows. Bony Thorax: The bony thorax appears intact, without fractures or deformities. Cervical fixation. Soft Tissues: The soft tissues overlying the chest wall are unremarkable. ECG wires are present. IMPRESSION: 1. Overall imaging appearances are likely due to pulmonary edema; however, clinical and laboratory correlation is advised to rule out superimposed infection. 2. Slight interval worsening. Electronically signed by Jakob Cho 01-06-2025 06:33 AM I & O Totals 24 Hours 01/05/25 01/06/25 01/07/25 06:59 06:59 06:59 Intake Total 2313 / 2313 0 / 0 Balance 2313 / 2313 0 / 0 Cumulative 01/06/25 01:33 thru 01/06/25 07:18 Intake Total 2313 Balance 2313 RT Ventilator Mngmt (Last Documented) Ventilator Ordered Settings Respiratory Rate 30 01/06/25 06:50 Fraction of Inspired Oxygen 1.0 01/06/25 08:24 Ventilator - PT Measurements Respiratory Rate 30 Coding Level of Care Code 22129 CRITICAL CARE 1ST 30-74M Additional Critical Care Time Additional 30min Critical Care Time: Yes - 85066 Diagnoses ARDS (adult respiratory distress syndrome) J80 Multifocal pneumonia J18.8 Acute hypoxemic respiratory failure J96.01 Additional Codes Critical Care Time - Additional 30min Critical Care Time: Yes - 13789 ([id number])
--- NOTE | 2025-01-06 06:34 | XRay Report ---
EXAM: XR chest 1V portable CLINICAL HISTORY: Worsening respiratory status TECHNIQUE: An X-ray image of the chest was obtained in AP portable projection. COMPARISON: 01/06/2025 01:27:02 LEGAL WORD PROCESSOR FINDINGS: Pulmonary Parenchyma: There are bilateral pulmonary parenchymal opacities, predominant in the right middle zone, with consolidative opacities and bilateral central hilar opacities. There is slight progression. There are increased bronchovascular markings with reticular shadows. There is no evidence of pleural effusion or pleural thickening. Heart and Mediastinum: The size and shape of the heart are normal. There is no mediastinal widening or mass. Prominent hilar shadows. Bony Thorax: The bony thorax appears intact, without fractures or deformities. Cervical fixation. Soft Tissues: The soft tissues overlying the chest wall are unremarkable. ECG wires are present. IMPRESSION: 1. Overall imaging appearances are likely due to pulmonary edema; however, clinical and laboratory correlation is advised to rule out superimposed infection. 2. Slight interval worsening. Electronically signed by Jakob Cho 01-06-2025 06:33 AM
[2025-01-06] MEDS: VANCOMYCIN HCL 1,250 MG in SODIUM CHLORIDE 0.9% 500 ML IV ONE (06:48)
--- NOTE | 2025-01-06 07:02 | Billing Data ---
Date of Service January 06, 2025 Coding Level of Care Code 42063 CRITICAL CARE
--- NOTE | 2025-01-06 07:41 | Communication Note ---
Date of Service: January 06, 2025 730 During my evaluation the patient is entering acute respiratory distress syndrome. He is on high flow oxygen nasal cannula 60 L a minute breathing gre ater than 30 times a minute saturating 94%. He has a longstanding history of immunotherapy and stem cell transplant, he does not carry risk factors for tuberculosis. This is less consistent with multifocal pneumonia and evolving respiratory distress syndrome given his recent chemotherapy, chronic medications, I do not feel Airborne precautions are needed for tuberculosis and they will be discontinued. I have requested the patient's present to bedside so we can have extensive discussions regarding possible treatment therapies. Patient certainly seems to be on a trajectory towards intubation, given the probable underlying etiologies and speed in which his acute hypoxic respiratory failure has progressed I am concerned this would not be a short course of mechanical ventilation. Given the multiple antibody based infusions, as well as prior stem cell transplant patient would likely require lung biopsy to best elucidate future treatments: Discussing with patient and family it appears continuing treatments may worsen lung function versus discontinuing treatments which may worsen underlying malignancy. We do not have the ability to perform lung biopsy, will discuss tertiary care options, the patient's respiratory status may be too tenuous to facilitate transfer without intubation. Patient has wanted aggressive care throughout his treatment course, given our limited diagnostics we cannot fully evaluate the probable causes which have profound implications and long-term treatment, efficacy, outcome at this institution: We can by enlarge only provide supportive care through the ARDS course. Update 900 Discussed with and 2 sons at bedside. Staff contacted [facility] who agreed with transport for acute respiratory distress secondary to recent chemotherapy. Patient's hypoxia continued to worsen: After intubation patient was having clear frothy sputum. Immediate bedside ultrasound demonstrated normal appearance of EF, diffuse B-lines through all lung garrido consistent with interstitial fluid, no evidence of pleural effusion. Patient's oxygen saturation dropped to the low 80s and required recruitment maneuver of PEEP of 35 no delta above PEEP no respiratory effort on 100% FiO2 for 30 seconds: After recruitment maneuver patient's oxygen saturation improved to mid 90s. Increased PEEP to 15 cm of water, advising staff to clamp tube, maintain PEEP, prior to switching from our ventilator to transport vent with helicopter EMS. I have personally spent 95 minutes of critical care time in the direct management of this patient. This is a life/limb threatening event. This includes time spent evaluating patient, direct bedside care, chart review, placing orders, interpretation of diagnostic studies, discussion with consultants, patient, and/or family members regarding treatment decisions, as well as other required patient management activities. This time is exclusive of all separately billable procedures, and teaching time and separate from and in addition to any other critical care service time. Coding Level of Care Code 61281 CRITICAL CARE EA ADD 30M Comment
[2025-01-06] MEDS ORDERED: ENOXAPARIN INJ 40 MG/0.4 ML SYR SQ SCH (08:00)
[2025-01-06] MEDS ORDERED: PROPOFOL BOLUS FROM BAG IV PRN (08:21)
[2025-01-06] MEDS ORDERED: STAT IV Infusion **Titration per Protocol STA ×2 (08:21→08:42)
--- NOTE | 2025-01-06 08:25 | Procedure Note ---
Procedure Note Date of Service January 06, 2025 Procedure Date: Noted above Procedure: Endotracheal intubation Pre-procedure Diagnosis: Acute hypoxic respiratory failure Post-procedure Diagnosis: same as above Prior to Procedure: Informed Consent: emergent Attending Staff: Robi Marie DO Registered Representative: Amanda Dubois The identity of the patient was confirmed and a bedside time out was performed. Description of Procedure: Patient was evaluated and required intubation for impending respiratory failure. The patient was prepared in the usual fashion. A video laryngoscope was used. A 8 mm inner diameter endotrachial tube was placed endotracheally to 26 cm at the teeth. A grade 1 view was obtained. The endotracheal tube was noted to pass through the vocal cords. Chest rise was bilateral. Bilateral breath sounds were heard without air sounds in the abdomen. Mist was noted in the endotracheal tube. End-tidal CO2 measurement was positive. Chest x-ray shows proper endotracheal tube placement. Complications: Patient started to have frothy sputum. Patient's oxygenation remained 88 or greater during the entirety of the procedure and for the immediate post intubation. Findings: Not applicable Specimens: Not applicable Estimated blood loss: Zero [facility] Procedure Codes (Charges) Resuscitation Resuscitation: 41398 Endotracheal Intubation, emergency Coding CPT Codes Resuscitation - Resuscitation: 75564 Endotracheal Intubation, emergency ([id number]) Additional Codes Date of Service ([email or web address].SURGERY)
[2025-01-06] MEDS: fentaNYL citrate 2,500 MCG/250 ML BAG IV ONE (08:33)
[2025-01-06] MEDS: PROPOFOL IV EMULSION 10 MG/ML 100 ML VIAL IV ONE (08:33)
[2025-01-06] MEDS: DOXYCYCLINE HYCLATE 100 MG in DEXTROSE 5% MINI-B 100 ML IV SCH (08:41)
[2025-01-06] MEDS ORDERED: MIDAZOLAM BOLUS FROM BAG IV PRN (08:42)
[2025-01-06] MEDS ORDERED: DEXAMETHASONE SOD INJ 4 MG/ML VIAL IV STA (08:45)
--- NOTE | 2025-01-06 08:55 | Discharge Summary ---
Discharge Summary Date of Service January 06, 2025 Principal Dx & Hospital Course #1 = Principal Diagnosis (1) Acute hypoxemic respiratory failure: (2) Severe sepsis: (3) Immunocompromised patient: (4) ARDS (adult respiratory distress syndrome): Plan The patient is a 74-year-old male with a past medical history including multiple myeloma with most recent chemotherapy department admission, ambulatory dysfunction, memory deficit, vitamin D deficiency, fatigue, hyperlipidemia, hypertension, seizure disorder, and BPH. The patient was brought to the emergency department due to worsening shortness of breath, dyspnea exertion, g eneralized rapid decline in function throughout the day. The patient reported that he was feeling sick the previous evening, underwent chemotherapy on the morning of 01/05. His reports that he actually been sick for few days prior to that as well. Upon arrival to the emergency department, he was found to be hypotensive, with blood pressure 73/48. He was attended to by the ED physician, and received aggressive fluid rehydration, with improvement in blood pressure to the 99/70, and continued improvement from there with continued rehydration. Chest x-ray showed a very significant right upper and right middle lobe infection, and left upper and part of left lower lobe infection. He was initially on nasal cannula, and then changed to oxy mask, redness oxygen saturation in the ED low 90s. He was empirically placed on Zosyn 4.5 g IV by ED. he was then referred for evaluation for admission to the [facility]. COVID, flu, RSV testing negative MRSA swab ordered and pending Chest x-ray with severe bilateral lobe and right middle lobe infections, with follow-up x-rays extending up the lower lobes bilaterally Cannot tolerate laying backwards to do CT chest at this time # Acute respiratory failure - severe hypoxia, requiring intubation and mechanical ventilation # ARDS - multifocal pulmonary infiltrates, severe hypoxia - good EF on bedside ultrasound, unclear cause suspect noncardiogenic pulmonary edema, probably chemotherapy induced pneumonitis. Infectious pneumonia seems unlikely, however he is immunocompromised -unable to do lung biopsy or further diagnostics at this facility, transferring to [facility] for tertiary care ICU per recommendations of our yarn spooler. Please see his note this morning. 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 He has received IV and intrathecal chemotherapy. MRIs done December 30 showed no evidence of cancer or leptomeningeal enhancement at that time. Most recent chemotherapy and on the morning of 01/05 Immunoglobulin testing has been ordered by outpatient physician earlier today, which are showing a low normal IgG, and a abnormally low IgA and IgM Primary oncologist is Dr. Leiva # Seizure disorder- Changing Keppra 5 mg p.o. every 12 hours to IV every 12 hours # Hypomagnesemia- Magnesium 1.6 on admission, give mag sulfate 2 g IV, recheck laboratories every morning Admission HPI Per Admitting Provider The patient is a 74-year-old male with a past medical history including multiple myeloma with most recent chemotherapy department admission, ambulatory dysfunction, memory deficit, vitamin D deficiency, fatigue, hyperlipidemia, hypertension, seizure disorder, and BPH. The patient was brought to [facility] department due to worsening shortness of breath, dyspnea exertion, generalized rapid decline in function throughout the day. The patient reported that he was feeling sick the previous evening, underwent chemotherapy on the morning of 01/05. His reports that he actually been sick for few days prior to that as well. Upon arrival to the emergency department, he was found to be hypotensive, with blood pressure 73/48. He was attended to by the ED physician, and received aggressive fluid rehydration, with improvement in blood pressure to the 99/70, and continued improvement from there with continued rehydration. Chest x-ray showed a very significant right upper and right middle lobe infection, and left upper and part of left lower lobe infection. He was initially on nasal cannula, and then changed to oxy mask, redness oxygen saturation in the ED low 90s. He was empirically placed on Zosyn 4.5 g IV by ED. he was then referred for evaluation for admission to the [facility] Discharge Exam Last 24h vitals reviewed GEN: critically ill, intubated and mechanically ventilated, remains hypoxic RESP: equal chest rise, vent sounds CV: Reg ABD: soft/nt/nd : samuels SKIN: warm and dry, no generalized rashes NEURO: intubated and sedated Discharge Plan Discharge Items Reason For Visit: SEPSIS DUE TO MULTIFOCAL PNEUMONIA W HYPOXIA, Follow-up/Referrals: Eyal Baron MD [Primary Care Provider] - Medications and DC Order Prescriptions: No Action cholecalciferol (vitamin D3) [Vitamin D3] 25 mcg (1,000 unit) Tablet 25 mcg PO QAM Qty: 0 tamsulosin 0.4 mg capsule PO atorvastatin 10 mg tablet 20 mg PO HS ferrous sulfate [iron] 325 mg (65 mg iron) Tablet 325 mg PO QAM acyclovir 200 mg capsule 400 mg PO BID metoprolol succinate 25 mg tablet extended release 24 hr 25 mg PO DAILY levetiracetam 500 mg tablet 1,500 mg PO Q12H amlodipine 2.5 mg tablet 2.5 mg PO DAILY Admission Data Admit Date/Time: 01/06/25 03:55 Attending Provider: Mady Pan Admit Provider: Mario De Los Santos Primary Care Provider: Eyal Baron Other Providers: Mario De Los Santos; Charli Leiva; Billy Nayak; Yunior Marie Hospital Stay Data Consultations 01/06/25 03:11 ED Decision to Admit Stat 01/06/25 05:10 Consult Hematology Routine Consult Pulmonology Routine 01/06/25 05:31 Consult Sales Trader Routine Total Time Total Time Spent Total Time Spent (In Minutes): <30 Coding Level of Care Code 44887 IN/OBS DISCH 30 MIN/LESS Diagnoses Acute hypoxemic respiratory failure J96.01 Severe sepsis A41.9; R65.20 Immunocompromised patient D84.9 ARDS (adult respiratory distress syndrome) J80
[2025-01-06] MEDS: dexAMETHasone 10 MG in SYRINGE 0 ML IV STA (08:58)
[2025-01-06] MEDS: FUROSEMIDE 40 MG/4 ML VIAL IV ONE ×2 (08:58→09:03)
[2025-01-06] MEDS ORDERED: CHOLECALCIFEROL 25 MCG (1000 UNITS) TAB PO SCH (09:00)
[2025-01-06] MEDS ORDERED: levETIRAcetam 500 MG TAB PO SCH (09:00)
[2025-01-06] MEDS: fentaNYL citrate 2,500 MCG/250 ML BAG IV SCH (09:01)
[2025-01-06] MEDS: MIDAZOLAM HCL 125 MG/250 ML BAG IV SCH (09:02)
[2025-01-06] MEDS: RAPID SEQUENCE INDUCTION BAG ONE (09:03)
[2025-01-06] MEDS: VECURONIUM BROMIDE 10 MG VIAL IV ONE (09:03)
[2025-01-06] MEDS: MIDAZOLAM HCL 125MG/250ML D5W IV ONE ×2 (09:03)
[2025-01-06] MEDS: ROCURONIUM BROMIDE 10 MG/ML 5 ML VIAL IV STA (09:04)
[2025-01-06 09:21] LABS: Chlamydia pneumoniae PCR Not Detected (NotDetected); Coronavirus 229E PCR Not Detected (NotDetected); Coronavirus CoV-2 (COVID19)PCR Not Detected (NotDetected); Coronavirus HKU1 PCR Not Detected (NotDetected); Coronavirus NL63 PCR Not Detected (NotDetected); Coronavirus OC43PCR Not Detected (NotDetected); Human Metapneumovirus PCR Not Detected (NotDetected); Parainfluenza Virus 1 PCR Not Detected (NotDetected); Parainfluenza Virus 2 PCR Not Detected (NotDetected); Parainfluenza Virus 3 PCR Not Detected (NotDetected); Parainfluenza Virus 4 PCR Not Detected (NotDetected); Respiratory Syncytial VirusPCR Not Detected (NotDetected); Rhinovirus/Enterovirus PCR Not Detected (NotDetected)
--- NOTE | 2025-01-06 09:29 | XRay Report ---
XR chest 1V portable CLINICAL HISTORY: Eval ETT placement COMPARISON STUDY: 01/06/2025 FINDINGS: Endotracheal tube tip is just below the thoracic inlet. Heart size is normal. There is stab le patchy bilateral pulmonary opacity most prominent in the central and perihilar regions. Ulnar vasc ulature is obscured. No pleural effusion or pneumothorax seen. IMPRESSION: 1. Well-positioned endotracheal tube. 2. Stable bilateral pulmonary opacities, pulmonary edema versus pneumonia. ACT 112: Negative or not required by law. Electronically signed by: Angel Savage M.D. 01/06/2025 9:28 AM
--- NOTE | 2025-01-06 10:46 | Electrocardiogram Report ---
Test Reason : Blood Pressure : */* mmHG Vent. Rate : 120 BPM Atrial Rate : 120 BPM P-R Int : 144 ms QRS Dur : 90 ms QT Int : 342 ms P-R-T Axes : 46 92 52 degrees QTcB Int : 483 ms Sinus tachycardia with Premature supraventricular complexes Rightward axis Nonspecific ST abnormality Abnormal ECG When compared with ECG of 29-Sep-2024 10:33, Premature supraventricular complexes are now Present Vent. rate has increased by 47 bpm Confirmed by Torrey Black ([id number]) on 01/06/2025 10:46:37 AM Referred By: REFERRED SELF Confirmed By: Torrey Black
[2025-01-06] MEDS ORDERED: VANCOMYCIN 750 MG in SODIUM CHLORIDE 0.9% 250 ML IV SCH (19:00)
[2025-01-06] MEDS ORDERED: ATORVASTATIN 20 MG TAB PO SCH (21:00)
[2025-01-07 09:48] LABS: Quantiferon TB1 0.628 IU/mL; Quantiferon TB2 0.641 IU/mL
[2025-01-08] MEDS ORDERED: PPD CHECK ONE (04:00)
== END 2025-01-06 10:15 | disposition short-term general hospital (02) | DRG 871 ==
LOC: SUATTDRO → ED 01:33 → EDINP 03:55 → SUATTDRO 03:55 → 1E 05:10